=== PATIENT | female | born 1960 | race Caucasian/White ===

== ENCOUNTER 2021-10-06 13:12 | Observation (INO) | payer OTHER ==
[2021-10-06 13:50] LABS: #Basophils 0.1 10x3/uL (0.0-0.2); #Eosinphils 0.1 10x3/uL (0.0-0.5); #Monocytes 0.5 10x3/uL (0.0-1.1); #Neutrophils 2.9 10x3/uL (1.5-8.4); %Basophils 1.2 % (0.0-2.0); %Eosinophils 1.8 % (0.0-6.0); %Lymphocytes 30.6 % (18.0-47.0); %Monocytes 9.6 % (0.0-10.0); %Neutrophils 56.6 % (40.0-75.0); Hemoglobin 13.8 g/dL (12.0-15.5); Mean Corpuscular HGB CONC 35.3 g/dL (32.0-36.0); Mean Corpuscular Volume 87.9 fl (81.6-98.3); Mean Platelet Volume 9.6 fl (7.4-10.4); Platelet Count 254 10x3/uL (150-450); RBC Distribution Width 11.9 % (11.5-14.5); Red Blood Cell (RBC) Count 4.45 10x6/uL (3.90-5.03); White Blood Cell (WBC) Count 5.1 10x3/uL (3.5-10.5)
[2021-10-06 14:03] LABS: ALT (SGPT) 16 U/L (8-55); AST (SGOT) 22 U/L (5-34); Albumin 4.3 g/dL (3.5-5.0); Alkaline Phosphatase 65 U/L (40-110); Anion Gap 13 mmol/L (10-20); BUN (Urea Nitrogen) 15 mg/dL (9.8-20.1); Bilirubin, Total 0.5 mg/dL (0.2-1.2); Calc. Creatinine Clearance 0 mL/min (70-130); Calcium 9.6 mg/dL (7.8-10.44); Carbon Dioxide 26 mmol/L (22-29); Chloride 105 mmol/L (98-107); Globulin 2.9 g/dL (2.4-3.5); Glucose 100 mg/dL (70-105); Potassium 4.3 mmol/L (3.5-5.1); Protein, Total 7.2 g/dL (6.0-8.3); Sodium 140 mmol/L (136-145)
[2021-10-06 14:27] LABS: CKMB 1.2 ng/mL (0-6.6)
[2021-10-06] MEDS ORDERED: Ondansetron PF 4 MG/2 ML Vial IVP PRN (16:04)
[2021-10-06] MEDS ORDERED: Acetaminophen 650 MG Suppository PR PRN (16:04)
[2021-10-06] MEDS ORDERED: Ondansetron ODT 4 MG TAB PO PRN (16:04)
[2021-10-06] MEDS ORDERED: Nitroglycerin 0.4 MG TAB (25 Tab Bottle) SL PRN (16:04)
[2021-10-06 17:15] LABS: Troponin I Less than 0.010 ng/mL (< 0.028)
[2021-10-06 19:33] LABS: Troponin I Less than 0.010 ng/mL (< 0.028)
[2021-10-06 21:25] VITALS: BMI 23.3
[2021-10-06] MEDS: Acetaminophen 325 MG TAB PO PRN (21:36)
[2021-10-07 05:17] LABS: #Basophils 0.1 10x3/uL (0.0-0.2); #Eosinphils 0.1 10x3/uL (0.0-0.5); #Monocytes 0.4 10x3/uL (0.0-1.1); #Neutrophils 1.5 10x3/uL (1.5-8.4); %Basophils 1.4 % (0.0-2.0); %Eosinophils 3.7 % (0.0-6.0); %Lymphocytes 40.1 % (18.0-47.0); %Monocytes 11.3 % (0.0-10.0); %Neutrophils 43.2 % (40.0-75.0); Hemoglobin 13.4 g/dL (12.0-15.5); Mean Corpuscular Hemoglobin 30.9 pg (27.0-33.0); Mean Corpuscular Volume 90.8 fl (81.6-98.3); Mean Platelet Volume 9.8 fl (7.4-10.4); Platelet Count 229 10x3/uL (150-450); RBC Distribution Width 11.8 % (11.5-14.5); Red Blood Cell (RBC) Count 4.34 10x6/uL (3.90-5.03); White Blood Cell (WBC) Count 3.5 10x3/uL (3.5-10.5)
[2021-10-07 05:36] LABS: Anion Gap 17 mmol/L (10-20); BUN (Urea Nitrogen) 13 mg/dL (9.8-20.1); Calc. Creatinine Clearance 73 mL/min (70-130); Calcium 9.2 mg/dL (7.8-10.44); Carbon Dioxide 28 mmol/L (22-29); Cardiac Risk 4.3 (Less than 4.5); Chloride 105 mmol/L (98-107); Cholesterol 218 mg/dl (< 200 Desired); Glucose 94 mg/dL (70-105); HDL Cholesterol 51 mg/dL (>60 Neg Risk); LDL Cholesterol, Calculated 147 mg/dL; Potassium 4.5 mmol/L (3.5-5.1); Sodium 145 mmol/L (136-145); Triglycerides 101 mg/dL (Less than 150)
[2021-10-07] MEDS: Acetaminophen 325 MG TAB PO PRN (07:13)
[2021-10-07] MEDS ORDERED: Ibuprofen 200 MG TAB PO PRN (08:56)
[2021-10-07] MEDS ORDERED: Aspirin Chewable 81 MG TAB PO SCH (09:00)
[2021-10-07] MEDS ORDERED: traMADol HCl 50 MG TAB PO SCH (13:30)
[2021-10-07 14:04] LABS: Hemoglobin A1c 5.2 % (4.0-6.0)
[2021-10-07 15:42] LABS: SARS-CoV-2 PCR by NAA Not Detected (NotDetected)
[2021-10-07] MEDS ORDERED: SUMAtriptan Succinate 25 MG TAB PO SCH (16:00)
[2021-10-07 16:33] VITALS: BP 126/64; TEMP 98.2
== END 2021-10-07 18:30 | disposition home or self-care (01) ==
LOC: CSHERS 13:12 → CSHTELE 21:20
PROVIDERS: ADMIT Student in an Organized Health Care Education/Training Program; ATTEND Physician Assistant
DX: R07.89 Other chest pain (principal); G44.009 Cluster headache syndrome, unspecified, not intractable; Z87.891 Personal history of nicotine dependence; Z82.49 Family history of ischemic heart disease and other diseases of the circulatory system; Z20.822 Contact with and (suspected) exposure to COVID-19; Z79.899 Other long term (current) drug therapy
CPT/HCPCS: 36415; 71045; 80048; 80053; 80061; 82553; 83036; 84484; 85025; 93005; 94760; G0378; U0003; U0005